=== PATIENT | female | born 1975 | race Caucasian/White ===

== ENCOUNTER → 2021-07-05 | Outpatient (CLI) | payer BC ==
--- NOTE | 2021-07-05 12:39 | RAD ---
EXAM: Left thumb, 3 views. HISTORY: Blunt trauma. COMPARISON: None. FINDINGS: 3 views of the left thumb are obtained. There is no acute fracture, dislocation or subluxat ion. There is no radiodense foreign body. IMPRESSION: No acute osseous finding. Electronically signed by: Araceli Parikh MD (07/05/2021 12:37 PM) [id number]
== END ==
LOC: RAD 12:18
PROVIDERS: ATTEND Physician Assistant Medical
DX: S69.92XA Unspecified injury of left wrist, hand and finger(s), initial encounter (principal); X58.XXXA Exposure to other specified factors, initial encounter; Y93.89 Activity, other specified; Y92.89 Other specified places as the place of occurrence of the external cause; Y99.8 Other external cause status
CPT/HCPCS: 73140